=== PATIENT | male | born 1990 | race Two or more races ===

== ENCOUNTER 2021-06-08 03:40 | Emergency (ER) | payer SELFPAY ==
[~2021-06-08] VITALS: Ht 175.3 cm; Wt 72.6 kg
[2021-06-08 03:52] VITALS: BP 134/78
--- NOTE | 2021-06-08 03:57 | NUR ---
[id number]. BROUGHT FOR "MY FEET ARE COLD FEET". TEMP 97.8 ORALLY. PATIENT ALERT AND ORIENTED X2. BROUGHT IN BY STRETCHER WITH [employer] AT BEDSIDE.
--- NOTE | 2021-06-08 04:05 | NUR ---
PROVIDED PT WITH SOCKS AND WARM BLANKETS. PATIENT IS COMFORTABLE AND IN BED 12
--- NOTE | 2021-06-08 05:08 | NUR ---
Patient discharged to home in stable condition. Written and verbal after care instructions given. Patient verbalizes understanding of instruction. Warm blankets provided as well as food and water.
== END 2021-06-08 05:09 | disposition home or self-care (01) ==
LOC: ER 03:49
DX: R46.1 Bizarre personal appearance (principal); Z59.00 Homelessness unspecified